=== PATIENT | male | born 1970 | race Caucasian/White ===

== ENCOUNTER 2018-10-12 08:53 | Day surgery (SDC) | payer OTHER ==
[2018-10-12] MEDS ORDERED: MIDAZOLAM 1 MG/ML 2 ML INJ ×3 (11:24)
[2018-10-12] MEDS ORDERED: FENTAnyl 50 MCG/ML VIAL (11:24)
== END 2018-10-12 17:15 | disposition home or self-care (01) ==
LOC: GIL 08:53
DX: Z12.11 Encounter for screening for malignant neoplasm of colon (principal); K64.8 Other hemorrhoids; D12.8 Benign neoplasm of rectum
CPT/HCPCS: 45380; 88305